=== PATIENT | female | born 1965 | race African-American/Black ===

== ENCOUNTER 2017-08-26 12:15 | Emergency (ER) | payer BC ==
[2016-04-04 10:04] VITALS: BMI 18.6
[~2017-08-26 12:15] MED LIST: CLARITIN 10 MG10 MG PO; OMEPRAZOLE40 MG PO; VITAMIN D250000 UNIT PO
== END 2017-08-26 15:00 | disposition home or self-care (01) ==
LOC: D.ER 12:15
DX: M54.6 Pain in thoracic spine (principal); M54.31 Sciatica, right side; K21.9 Gastro-esophageal reflux disease without esophagitis